=== PATIENT | female | born 1945 | race Caucasian/White ===

== ENCOUNTER → 2023-10-04 10:15 | Outpatient (REF) | payer MEDICARE, BC, SELFPAY ==
[2023-10-04 12:22] LABS: ALT (SGPT) 28 U/L (0-35); AST (SGOT) 41 U/L (14-36); Albumin 4.4 g/dl (3.5-5.0); Alkaline Phosphatase 133 U/L (38-126); Blood Urea Nitrogen 20 mg/dl (7-17); Calcium 9.8 mg/dl (8.4-10.2); Carbon Dioxide 24 mmol/L (22-30); Chloride 100 mmol/L (98-107); Glucose 161 mg/dl (70-99); HDL Cholesterol 76 mg/dl; LDL Cholesterol, Calculated 37 mg/dl; Potassium 4.5 mmol/L (3.5-5.1); Sodium 136 mmol/L (135-145); Total Bilirubin 1.9 mg/dl (0.2-1.3); Total Cholesterol 151 mg/dl (50-199); Triglyceride 194 mg/dl (10-149); Very Low Density Lipoprotein 38 mg/dl (0-30); eGFR > 60.00
[2023-10-04 13:35] LABS: Glycohemoglobin (HgbA1c) 7.8 % (4.0-5.6)
== END ==
LOC: OLABPV 10:15
PROVIDERS: ATTENDING PHYSICIAN Family Medicine
DX: E11.9 Type 2 diabetes mellitus without complications (principal)
CPT/HCPCS: 36415; 80053; 80061; 83036

== ENCOUNTER → 2023-10-07 09:16 | Outpatient (REF) | payer MEDICARE, BC, SELFPAY | LOC: HWRAD 09:16 | PROVIDERS: ATTENDING PHYSICIAN Family Medicine | DX: M54.50 Low back pain, unspecified (principal) | CPT/HCPCS: 72110 ==

== ENCOUNTER → 2023-10-27 08:10 | Outpatient (REF) | payer MEDICARE, BC, SELFPAY | LOC: HWRAD 08:10 | PROVIDERS: ATTENDING PHYSICIAN Family Medicine | DX: K76.0 Fatty (change of) liver, not elsewhere classified (principal); R79.89 Other specified abnormal findings of blood chemistry | CPT/HCPCS: 76700 ==

== ENCOUNTER → 2023-12-20 11:30 | Outpatient (REF) | payer MEDICARE, BC, SELFPAY ==
[2023-12-20 13:02] LABS: ALT (SGPT) 33 U/L (0-35); AST (SGOT) 41 U/L (14-36); Albumin 4.2 g/dl (3.5-5.0); Alkaline Phosphatase 119 U/L (38-126); Blood Urea Nitrogen 16 mg/dl (7-17); Calcium 9.4 mg/dl (8.4-10.2); Carbon Dioxide 25 mmol/L (22-30); Chloride 104 mmol/L (98-107); GGTP 30 U/L (12-43); Glucose 145 mg/dl (70-99); Potassium 4.3 mmol/L (3.5-5.1); Sodium 139 mmol/L (135-145); Total Bilirubin 1.8 mg/dl (0.2-1.3); Total Protein 7.7 g/dl (6.3-8.2); eGFR > 60.00
[2023-12-20 13:32] LABS: Hepatitis B Surface Antigen Negative (Negative)
[2023-12-20 13:50] LABS: Glycohemoglobin (HgbA1c) 7.1 % (4.0-5.6)
[2023-12-20 13:51] LABS: Hepatitis B Core Ab, Total Negative (Negative); Hepatitis B Surface Antibody Negative; Hepatitis C Antibody Negative (Negative)
[2023-12-21 13:53] LABS: Alk Phos Bone Specific Results 14.8 ug/L
== END ==
LOC: OLABPV 11:30
PROVIDERS: ATTENDING PHYSICIAN Family Medicine
DX: E11.9 Type 2 diabetes mellitus without complications (principal); K76.0 Fatty (change of) liver, not elsewhere classified; R79.89 Other specified abnormal findings of blood chemistry; R74.8 Abnormal levels of other serum enzymes
CPT/HCPCS: 36415; 80053; 82977; 83036; 84075; 86704; 86706; 86803; 87340

== ENCOUNTER → 2024-06-29 11:49 | Outpatient (REF) | payer MEDICARE, BC, SELFPAY ==
[2024-06-29 12:26] LABS: % Basophils 1.4 % (0-2); % Eosinophils 4.3 % (0-6); % Immature Granulocytes 0.6 % (0-0.5); % Monocytes 10.8 % (1.7-9.3); % Neutrophils 51.9 % (42.2-75.2); Absolute Basophils 0.1 10^3/uL (0-0.2); Absolute Eosinophils 0.3 10^3/uL (0-0.7); Absolute Lymphocytes 2.2 10^3/uL (1.2-3.4); Absolute Monocytes 0.8 10^3/uL (0.1-0.6); Absolute Neutrophils 3.7 10^3/uL (1.4-6.5); Hematocrit 45.1 % (37.0-47.0); Mean Corp Hgb Conc. 33.3 g/dL (33.0-37.0); Mean Corpuscular Hgb 29.9 pg (27.0-31.0); Mean Corpuscular Volume 89.8 fL (81.0-99.0); Mean Platelet Volume 10.6 fL (7.4-10.4); Nucleated Red Blood Cells % 0 %; Platelet Count 203 10^3/uL (130-400); Red Blood Cell Count 5.02 10^6/uL (4.20-5.40); Red Cell Dist. Width 12.7 % (11.5-14.5); White Blood Cell Count 7.2 10^3/uL (4.8-10.8)
[2024-06-29 14:27] LABS: Glycohemoglobin (HgbA1c) 7.1 % (4.0-5.6)
[2024-06-29 16:09] LABS: ALT (SGPT) 30 U/L (0-35); AST (SGOT) 35 U/L (14-36); Albumin 4.1 g/dl (3.5-5.0); Alkaline Phosphatase 123 U/L (38-126); Blood Urea Nitrogen 20 mg/dl (7-17); Calcium 9.3 mg/dl (8.4-10.2); Carbon Dioxide 25 mmol/L (22-30); Chloride 102 mmol/L (98-107); Glucose 173 mg/dl (70-99); HDL Cholesterol 83 mg/dl; LDL Cholesterol, Calculated 46 mg/dl; Potassium 4.7 mmol/L (3.5-5.1); Sodium 136 mmol/L (135-145); Total Bilirubin 1.6 mg/dl (0.2-1.3); Total Cholesterol 151 mg/dl (50-199); Total Protein 7.8 g/dl (6.3-8.2); Triglyceride 113 mg/dl (10-149); Very Low Density Lipoprotein 22 mg/dl (0-30); eGFR > 60.00
[2024-06-29 16:43] LABS: TSH 1.18 uIU/ml (0.47-4.68)
== END ==
LOC: OLABPV 11:49
PROVIDERS: ATTENDING PHYSICIAN Family Medicine
DX: R53.83 Other fatigue (principal); Z13.29 Encounter for screening for other suspected endocrine disorder; E11.9 Type 2 diabetes mellitus without complications; R79.89 Other specified abnormal findings of blood chemistry; E78.2 Mixed hyperlipidemia
CPT/HCPCS: 36415; 80053; 80061; 83036; 84443; 85025

== ENCOUNTER → 2024-12-04 10:39 | Outpatient (REF) | payer MEDICARE, BC, SELFPAY ==
[2024-12-04 11:27] LABS: ALT (SGPT) 38 U/L (0-35); AST (SGOT) 37 U/L (14-36); Albumin 4.4 g/dl (3.5-5.0); Alkaline Phosphatase 112 U/L (38-126); Blood Urea Nitrogen 15 mg/dl (7-17); Calcium 9.6 mg/dl (8.4-10.2); Carbon Dioxide 26 mmol/L (22-30); Chloride 105 mmol/L (98-107); Glucose 153 mg/dl (70-99); HDL Cholesterol 72 mg/dl; LDL Cholesterol, Calculated 59 mg/dl; Potassium 4.3 mmol/L (3.5-5.1); Sodium 140 mmol/L (135-145); Total Bilirubin 1.9 mg/dl (0.2-1.3); Total Cholesterol 163 mg/dl (50-199); Total Protein 8.2 g/dl (6.3-8.2); Triglyceride 164 mg/dl (10-149); Very Low Density Lipoprotein 32 mg/dl (0-30); eGFR > 60.00
[2024-12-04 11:41] LABS: % Basophils 1.2 % (0-2); % Immature Granulocytes 0.4 % (0-0.5); % Lymphocytes 32.1 % (20.5-51.1); % Monocytes 11.1 % (1.7-9.3); % Neutrophils 51.2 % (42.2-75.2); Absolute Basophils 0.1 10^3/uL (0-0.2); Absolute Eosinophils 0.3 10^3/uL (0-0.7); Absolute Lymphocytes 2.4 10^3/uL (1.2-3.4); Absolute Monocytes 0.8 10^3/uL (0.1-0.6); Absolute Neutrophils 3.8 10^3/uL (1.4-6.5); Hematocrit 43.8 % (37.0-47.0); Hemoglobin 15.1 g/dL (12.0-16.0); Mean Corp Hgb Conc. 34.5 g/dL (33.0-37.0); Mean Corpuscular Hgb 30.5 pg (27.0-31.0); Mean Corpuscular Volume 88.5 fL (81.0-99.0); Mean Platelet Volume 10.3 fL (7.4-10.4); Nucleated Red Blood Cells % 0 %; Platelet Count 205 10^3/uL (130-400); Red Blood Cell Count 4.95 10^6/uL (4.20-5.40); Red Cell Dist. Width 12.4 % (11.5-14.5); White Blood Cell Count 7.5 10^3/uL (4.8-10.8)
[2024-12-04 12:25] LABS: Glycohemoglobin (HgbA1c) 7.6 % (4.0-5.6)
== END ==
LOC: OLABPG 10:39
PROVIDERS: ATTENDING PHYSICIAN Family Medicine
DX: E11.9 Type 2 diabetes mellitus without complications (principal); R79.89 Other specified abnormal findings of blood chemistry; R53.83 Other fatigue; E78.2 Mixed hyperlipidemia
CPT/HCPCS: 36415; 80053; 80061; 83036; 85025

== ENCOUNTER → 2025-02-06 14:11 | Outpatient (REF) | payer MEDICARE, BC, SELFPAY | LOC: HWRAD 14:11 | PROVIDERS: ATTENDING PHYSICIAN Family Medicine | DX: M85.89 Other specified disorders of bone density and structure, multiple sites (principal); Z13.820 Encounter for screening for osteoporosis; Z78.0 Asymptomatic menopausal state; Z12.31 Encounter for screening mammogram for malignant neoplasm of breast | CPT/HCPCS: 77063; 77067; 77080 ==

== ENCOUNTER → 2025-05-28 11:22 | Outpatient (REF) | payer MEDICARE, BC, SELFPAY ==
[2025-05-28 12:15] LABS: Hematocrit 46.6 % (37.0-47.0); Hemoglobin 15.5 g/dL (12.0-16.0); Mean Corp Hgb Conc. 33.3 g/dL (33.0-37.0); Mean Corpuscular Volume 91.7 fL (81.0-99.0); Nucleated Red Blood Cells % 0 %; Platelet Count 186 10^3/uL (130-400); Red Cell Dist. Width 12.9 % (11.5-14.5)
[2025-05-28 12:24] LABS: ALT (SGPT) 24 U/L (0-35); AST (SGOT) 29 U/L (14-36); Albumin 4.2 g/dl (3.5-5.0); Alkaline Phosphatase 126 U/L (38-126); Blood Urea Nitrogen 18 mg/dl (7-17); Calcium 9.4 mg/dl (8.4-10.2); Carbon Dioxide 26 mmol/L (22-30); Chloride 106 mmol/L (98-107); Glucose 153 mg/dl (70-99); HDL Cholesterol 70 mg/dl; LDL Cholesterol, Calculated 46 mg/dl; Potassium 4.5 mmol/L (3.5-5.1); Sodium 137 mmol/L (135-145); Total Protein 7.8 g/dl (6.3-8.2); Very Low Density Lipoprotein 27 mg/dl (0-30); eGFR > 60.00
[2025-05-28 13:52] LABS: Glycohemoglobin (HgbA1c) 7.6 % (4.0-5.9)
== END ==
LOC: OLABPV 11:22
PROVIDERS: ATTENDING PHYSICIAN Family Medicine
DX: E11.9 Type 2 diabetes mellitus without complications (principal); R79.89 Other specified abnormal findings of blood chemistry; E78.2 Mixed hyperlipidemia; R53.83 Other fatigue
CPT/HCPCS: 36415; 80053; 80061; 83036; 85025